=== PATIENT | male | born 1985 | race Caucasian/White ===

== ENCOUNTER 2019-05-01 15:45 | Emergency (ER) | payer SELFPAY ==
[~2019-05-01] VITALS: Ht 182.9 cm; Wt 72.6 kg
--- NOTE | 2019-05-01 17:13 | NUR ---
PT IS IN ROOM #2A. DR DICKSON EVALUATED THE PT.
--- NOTE | 2019-05-01 17:31 | NUR ---
PT WAS D/C'd TO HOME. D/C INSTRUCTIONS GIVEN TO THE PT.
[2019-05-01 17:32] VITALS: BP 136/77
== END 2019-05-01 17:33 | disposition home or self-care (01) ==
LOC: ER 15:45
DX: L25.9 Unspecified contact dermatitis, unspecified cause (principal)
CPT/HCPCS: A4663